=== PATIENT | female | born 1965 | race Caucasian/White ===

== ENCOUNTER 2025-03-07 11:43 | Emergency (ER) | payer MEDICAID ==
[~2025-03-07] VITALS: Ht 154.9 cm; Wt 60.3 kg
[2025-03-07 12:11] VITALS: BP 174/120; PULSE 89; RESP 16; TEMP 98.2; O2SAT 100
[2025-03-07] MEDS ORDERED: CARV-50 PO (12:57)
[2025-03-07] MEDS ORDERED: AMLO5TAB16 PO (12:57)
[2025-03-07] MEDS ORDERED: LEVO100T PO (12:57)
--- NOTE | 2025-03-07 13:00 | Physician Documentation ---
HPI ~ General Chief Complaint: Medication Request Stated Complaint: MED REQUEST Time Seen by MD: 12:48 OK to notify your PCP?: Yes Source: patient Mode of Arrival: POV Exam Limitations: no limitations History of Present Illness HPI Comments 59-year-old female is here visiting for the next 4-5 days and forgot her medications at home. She takes carvedilol 12.5 mg, amlodipine 5 mg and levothyroxine. The levothyroxine dosing is unknown at this time. Medication Reconciliation Allergies: Coded Allergies: No Known Allergies (Unverified , 03/07/25) Scheduled Amlodipine Besylate (Amlodipine Besylate), 1 TAB PO DAILY Carvedilol* (Coreg*), 1 TAB PO Q12H Levothyroxine Sodium (Synthroid), 1 TAB PO DAILY Review of Systems All Other Systems at this time: Reviewed and Negative Physical Exam Physical Exam Vital Signs: RN Vital Signs have been reviewed: Yes, Temperature: 98.2, Source: Oral, Heart Rate: 89, Respiratory Rate: 16, BP: 174/120, Pulse Oximetry: 100, Weight: 60.300 Oxygen Flow Rate: 0 Pulse Oximetry Reflects: adequate oxygenation Physical Exam General: Alert, no distress. HEENT: No injection, moist mucous membranes. Neck: Full range of motion. Respiratory: No respiratory distress, equal chest rise and fall. Chest: No accessory muscle use. Cardiovascular: Regular rate and rhythm. Gastrointestinal: Nondistended. Extremities: Normal range of motion, no deformity. Neurologic: Oriented x4. Psychiatric: Normal mood and affect. Skin: Normal color, warm and dry. Progress Results/Orders Results/Orders Vital Signs 03/07/25 12:11 Temp 98.2 Pulse 89 Resp 16 B/P (MAP) 174/120 Pulse Ox 100 O2 Flow Rate 0 Medical Decision Making Additional info obtained from: old records Findings 59-year-old female here for medication refill as she is traveling out of the area and forgot her medicines. I refilled her carvedilol as well as her amlodipine for 5 days in the levothyroxine according to records she was taking 100 mcg, so I will refill at this dosing for 5 days. she plans on taking her medications normally as soon as she gets home. Differential Dx:Considerations: Include: Medical services unavail., Medication refill, Medication non-compliance Departure Disposition: 01 HOME / SELF CARE / HOMELESS Impression: Primary Impression: General medical exam Condition: Stable Discharge Instructions: Medicine Refill at the Emergency Department Referrals: NO PRIMARY CARE PROVIDER (PCP) Prescriptions Carvedilol* (Coreg*) 12.5 Mg Tablet 1 TAB PO Q12H for 5 Days, #10 TAB Prov: SARINA ZAVALA 03/07/25 Amlodipine Besylate (Amlodipine Besylate) 5 Mg Tablet 1 TAB PO DAILY for 5 Days, #5 TAB 0 Refills Prov: SARINA ZAVALA 03/07/25 Levothyroxine Sodium (SYNTHROID) 100 Mcg Tablet 1 TAB PO DAILY for 5 Days, #5 TAB 0 Refills Prov: SARINA ZAVALA 03/07/25 Education Educated: Patient Educated regarding: diagnosis, treatment, prognosis, need for follow up Additional Comment Medical Screen Exam This patient recieved a medical screening examination. After reviewing the ind [place]'s medical complaints with presenting symptoms and performing an appropriate physical examination, it was determined that no immediate life- threatening emergency medical condition is present. This individual is also not a women having contractions. Signature Scribe Signature: . Attestation: Scribed for Sarina Zavala by Sarina Delacruz NP . 03/07/25 13:00 Parts of this note were created using [employer] voice recognition software program. While efforts were made to correct any mistakes made by this voice recognition software program, nonsensical phrases may remain in this note. In addition, there may be errors and syntax, grammar, content and spelling. SARINA ZAVALA Mar 07, 2025 13:00
[2025-03-10] MEDS ORDERED: FAMO-128 PO (23:33)
[2025-03-10] MEDS ORDERED: HYDR-3965 PO (23:33)
== END 2025-03-07 13:07 | disposition home or self-care (01) ==
LOC: ER 11:44
DX: Z00.8 Encounter for other general examination (principal); Z76.0 Encounter for issue of repeat prescription
CPT/HCPCS: 99281; 99283

== ENCOUNTER 2025-03-09 09:29 | Emergency (ER) | payer MEDICAID ==
[~2025-03-09] VITALS: Ht 162.6 cm; Wt 65.0 kg
[~2025-03-09 09:29] MED LIST: AMLO5TAB16 PO; CARV-50 PO; LEVO100T PO
--- NOTE | 2025-03-09 12:27 | Physician Documentation ---
HPI ~ General Chief Complaint: Medication Request Stated Complaint: MED REQ Time Seen by MD: 09:44 History of Present Illness HPI Comments Patient is seen today with complaints of needing medication refill of levothyroxine 100 mcg and carvedilol 12.5 mg one tab twice a day. Patient states he went to months without these medications and states she started to get swollen and she actually just restarted the medications couple of days ago in his now feeling quite a bit better. She denies any chest pain or nausea, vomiting, diarrhea. She states her symptoms have been improving significantly. Medication Reconciliation Allergies: Coded Allergies: No Known Allergies (Unverified , 03/09/25) Scheduled Amlodipine Besylate (Amlodipine Besylate), 1 TAB PO DAILY Carvedilol* (Coreg*), 1 TAB PO Q12H Carvedilol* (Coreg*), 1 TAB PO Q12H Levothyroxine Sodium (Synthroid), 1 TAB PO DAILY Levothyroxine Sodium (Levothyroxine), 1 CAP PO DAILY Review of Systems Constitutional: Denies: chills, fever, weakness Eyes: Denies: pain, blurred vision ENT: Denies: ear pain, nose pain, throat pain, mouth pain Respiratory: Denies: cough, shortness of breath Cardiovascular: Denies: chest pain, palpitations Gastrointestinal: Denies: abdominal pain, nausea, vomiting Genitourinary: Denies: burning, dysuria Female Genitalia: Denies: vaginal discharge, pelvic pain Neurological: Denies: headache, dizziness Musculoskeletal: Denies: pain, swelling Integumentary: Denies: rash, lesions Allergic/Immunologic: Denies: hives, itching Hematologic/Lymphatic: Denies: no symptoms reported Psychiatric: Denies: depression, anxiety Physical Exam Physical Exam Vital Signs: Temperature: 96.4, Source: Temporal, Heart Rate: 74, Respiratory Rate: 18, BP: 169/112, Pulse Oximetry: 98, Weight: 65.000 Oxygen Flow Rate: 0 Progress Results/Orders Results/Orders Vital Signs 03/09/25 09:30 Temp 96.4 Pulse 74 Resp 18 B/P (MAP) 169/112 Pulse Ox 98 O2 Flow Rate 0 Medical Decision Making Findings Patient is seen today with complaints of needing medication refill of levothyroxine 100 mcg and carvedilol 12.5 mg one tab twice a day. Patient states he went to months without these medications and states she started to get swollen and she actually just restarted the medications couple of days ago in his now feeling quite a bit better. She denies any chest pain or nausea, vomiting, diarrhea. She states her symptoms have been improving significantly. Prescription of levothyroxine 100 mcg one tab once a day and carvedilol 12.5 mg one tab twice a day enough for two weeks sent to patient's pharmacy. Patient will return to ED with any worsening, concerning or changing symptoms. Patient will follow up with primary care as soon as possible for refills. Departure Disposition: HOME / SELF CARE / HOMELESS Impression: Primary Impression: General medical exam Additional Impression: Hypothyroid Qualified Codes: E03.9 - Hypothyroidism, unspecified Condition: Improved Discharge Instructions: Medicine Refill at the Emergency Department Additional Instructions: Prescription of levothyroxine 100 mcg one tab once a day and carvedilol 12.5 mg one tab twice a day enough for two weeks sent to patient's pharmacy. Patient will return to ED with any worsening, concerning or changing symptoms. Patient will follow up with primary care as soon as possible for refills. Referrals: NO PRIMARY CARE PROVIDER (PCP) Prescriptions Amlodipine Besylate (Amlodipine Besylate) 5 Mg Tablet 1 TAB PO DAILY for 30 Days, #30 TAB 0 Refills Prov: ILEANA ANGEL 03/09/25 Carvedilol* (Coreg*) 12.5 Mg Tablet 1 TAB PO Q12H for 30 Days, #60 TAB Prov: ILEANA ANEGL 03/09/25 Levothyroxine Sodium (Levothyroxine) 100 Mcg Capsule 1 CAP PO DAILY for 30 Days, #30 CAP 0 Refills Prov: ILEANA ANGEL 03/09/25 Signature Scribe Signature: No scribe Attestation: No scribe ILEANA ANGEL Mar 09, 2025 12:27
[2025-03-09] MEDS ORDERED: LEVO100C5 PO (12:28)
[2025-03-09] MEDS ORDERED: CARV-50 PO (12:28)
[2025-03-09] MEDS ORDERED: AMLO5TAB16 PO (12:42)
[2025-03-09 13:04] VITALS: BP 126/88; PULSE 88; RESP 18; TEMP 97.8; O2SAT 98
[2025-03-10] MEDS ORDERED: HYDR-3965 PO (23:33)
[2025-03-10] MEDS ORDERED: FAMO-128 PO (23:33)
== END 2025-03-09 13:05 | disposition home or self-care (01) ==
LOC: ER 09:30
DX: Z00.8 Encounter for other general examination (principal); Z76.0 Encounter for issue of repeat prescription; E03.9 Hypothyroidism, unspecified; Z79.899 Other long term (current) drug therapy
CPT/HCPCS: 99281

== ENCOUNTER 2025-05-31 16:33 | Emergency (ER) | payer MEDICAID ==
[~2025-05-31] VITALS: Ht 154.9 cm; Wt 63.6 kg
[~2025-05-31 16:33] MED LIST changes: -CARV-50 PO; +FAMO-128 PO; +LEVO100C5 PO
--- NOTE | 2025-05-31 17:55 | Physician Documentation ---
History of Present Illness ~ Chief Complaint: Sore Throat Stated Complaint: SORE THROAT Time Seen by MD: 16:59 HPI This is a 59-year-old female who presents with two days of cough and nasal congestion with one day of sore throat, patient reports possible fever was unable to take her temperature. Patient afebrile on triage. Patient reports no other acute symptoms or concerns including no chest pain or difficulty breathing. Medication Reconciliation Allergies: Coded Allergies: No Known Allergies (Unverified , 05/31/25) Scheduled Amlodipine Besylate (Amlodipine Besylate), 1 TAB PO DAILY Amlodipine Besylate (Amlodipine Besylate), 1 TAB PO DAILY Famotidine (Pepcid), 1 TAB PO Q12H Levothyroxine Sodium (Synthroid), 1 TAB PO DAILY Levothyroxine Sodium (Levothyroxine), 1 CAP PO DAILY Past Medical History Past Medical History: No Pertinent History Smoking Status: Current every day smoker Review of Systems ROS As stated above in the HPI, otherwise all systems are reviewed and negative. Physical Exam Vital Signs: Temperature: 98.5, Source: Temporal, Heart Rate: 87, Respiratory Rate: 18, BP: 144/103, Pulse Oximetry: 99, Weight: 63.640 Oxygen Flow Rate: 0 Physical Exam VITALS: Reviewed and as above. GENERAL: Alert, nontoxic appearing, no apparent distress. HEENT: Pharynx nonerythematous, no tonsillar swelling, no exudates, no patches, no cervical lymphadenopathy RESPIRATORY: No increased work of breathing, no respiratory distress, speaking in full clear sentences, clear lung sounds in all leger CV: Regular rate and rhythm no murmur Progress Results/Orders Results/Orders Orders - VIDAL DONG [employer] Covid19 Binax Poc Result Entry (05/31/25 17:03) Vital Signs 05/31/25 05/31/25 16:45 18:45 Temp 98.5 98.6 Pulse 87 82 Resp 18 18 B/P (MAP) 144/103 140/99 Pulse Ox 99 99 O2 Flow Rate 0 Laboratory Tests Test 05/31/25 17:31 SARS-CoV-2 Antigen (Rapid) Negative Medical Decision Making Additional information obtaine: N/A Findings This is a 59-year-old female presented with two days of cough and nasal congestion with one day of sore throat, physical exam benign with no pharyngeal erythema and clear lung sounds. Patient's vital signs stable and afebrile, reassuring against pneumonia as patient reports no shortness of breath or chest pain. COVID swab collected, test negative. This appears to be an uncomplicated upper respiratory tract infection likely viral, patient is otherwise well-appearing and appropriate for outpatient follow up. Home care instructions, return to care precautions and follow up instructions which he verbalized understanding of. Ear Diff. Dx: Considerations: Include: Referred pain-pharyngitis Eye Diff. Dx: Considerations: Unlikely: [place]az[place], Conjuctivits-allergic, Conjuctivitis-bacterial, Conjuctivits-chlamydial, Conjuctivitis-viral, Corneal abrasion, Corneal laceration, Corneal ulceration, Foreign body-conjuctiva, Foreign body-corneal, Foreign body-intraocular, Foreign body-lid, Glaucoma, Globe rupture, Hordeolum, Iritis, Orbital cellulitis, Periobital cellulitis, Retinal artery occulsion, Retinal vein occlusion, Rust ring, Subconjunctival hem, Ultraviolet keratitis, Uveitis, Vitreous hemorrhage, Other Nose Diff. Dx: Considerations: Include: Retained foreign body Tooth Diff. Dx: Considerations: Unlikely: Alveolar fracture, Aveolar osteitis, ANUG, Facial cellulitis, Periapical abscess, Periodontal abscess, Post-extrac tion bleeding, Pulpitis, Trigeminal neuralgia, Tooth-avulsion, Tooth-eruption, Tooth-fracture, Tooth-subluxation, Other Throat Diff Dx: Considerations: Include: Infection mononucleosis, Yasir's angina, Peritonsillar abscess, Pharyngitis-diphtheria, Pharyngitis-strepococcal, Pharyngitis-viral, Thrush, URI Additional Comment Additionally considered: Pneumonia, bronchitis, Departure Disposition: 01 HOME / SELF CARE / HOMELESS Impression: Primary Impression: Upper respiratory tract infection Qualified Codes: J06.9 - Acute upper respiratory infection, unspecified Condition: Improved Discharge Instructions: Upper Respiratory Infection, Adult, [id number] Additional Instructions: You may use ibuprofen and or Tylenol as needed for pain and fever directed by [id number] packaging. Please follow up with your primary care provider in the next few days. Please return to the emergency department for any new or worsening concerning symptoms including but not limited to chest pain or difficulty breathing. Referrals: NO PRIMARY CARE PROVIDER (PCP) Education Educated: Patient Educated regarding: diagnosis, treatment, prognosis, need for follow up Signature Scribe Signature: No scribe Attestation: The note accurately reflects work and decisions made by me.PLACIDO Mcdowell 06/01/25 00:49 VIDAL DONG May 31, 2025 17:55
[2025-05-31 18:45] VITALS: BP 140/99; PULSE 82; RESP 18; TEMP 98.6; O2SAT 99
== END 2025-05-31 18:46 | disposition home or self-care (01) ==
LOC: ER 16:33
DX: J06.9 Acute upper respiratory infection, unspecified (principal); F17.200 Nicotine dependence, unspecified, uncomplicated; Z20.822 Contact with and (suspected) exposure to COVID-19
CPT/HCPCS: 36415; 87811; 99283